=== PATIENT | male | born 2000 | race Caucasian/White ===

== ENCOUNTER 2021-12-24 13:09 | Emergency (ER) | payer OTHER ==
[~2021-12-24] VITALS: Ht 190 cm; Wt 75.0 kg
--- NOTE | 2021-12-24 13:48 | ED GU-Male ---
General Stated Complaint: UTI SYMPTOMS History of Present Illness Date Seen by Provider: Dec 24, 2021 Time Seen by Provider: 13:48 Initial Comments Patient reports that he noticed penile discharge for the past few weeks and dysuria. Reports that he thinks that he got an STD from his previous partner. States that his current partner is not having symptoms. No history of STD in the past. Timing/Duration: other (2 weeks) Severity/Quality: moderate, burning Location: urethral Radiation: none Activities at Onset: sexual activity Sexual [place] History: multiple partners Modifying Factors: Worsens With Urinating Associated Symptoms: No abdominal pain; dysuria; No fever/chills, No loss of bladder control, No nocturia, No urinary frequency Allergies and Home Medications Allergies Coded Allergies: No Known Drug Allergies (Unverified , 12/24/21) Patient Home Medication List Home Medication List Reviewed: Yes Review of Systems Review of Systems Constitutional: No chills, No fever Genitourinary: burning, discharge, dysuria; denies pain, denies urgency Musculoskeletal: No back pain, No joint pain Skin: No lesions, No lumps All Other Systemes Reviewed Negative Unless Noted: Yes Past Mrfiwuy-Epyhxm-Gyiscs Hx Family Medical History Reviewed Nursing Family Hx Physical Exam Vital Signs Vital Signs - First Documented 12/24/21 13:45 Temp 36.7 Pulse 84 Resp 18 B/P (MAP) 114/50 (71) Pulse Ox 99 Capillary Refill : Height, Weight, BMI Height: '" Weight: lbs. oz. kg; BMI Method: General Appearance: WD/WN, no apparent distress Gastrointestinal: normal bowel sounds, non tender, soft, no organomegaly, no pulsatile mass Neurologic/Psychiatric: alert, normal mood/affect, oriented x 3 Skin: normal color, warm/dry Progress/Results/Core Measures Suspected Sepsis SIRS Temperature: Pulse: Respiratory Rate: Blood Pressure / Mean: Results/Orders Lab Results Laboratory Tests Test 12/24/21 13:48 Range/Units My Orders Orders - APPLE CASTORENA APRN Chlamydia Trachomatis Urine (12/24/21 13:46) Neis Los Dna Urine Test (12/24/21 13:46) Ceftriaxone (Rocephin) (12/24/21 14:00) Doxycycline Hyclate Tablet (Vibramycin T (12/24/21 14:00) Lidocaine 1% Inj 20 Ml (Xylocaine 1% Inj (12/24/21 14:00) Vital Signs/I&O 12/24/21 13:45 Temp 36.7 Pulse 84 Resp 18 B/P (MAP) 114/50 (71) Pulse Ox 99 Capillary Refill : Progress Note : Progress Note Patient presented to the department with dysuria and discharge for the past few weeks. Obtained urine. Will treat for gonorrhea and chlamydia while here is here in the department. Importance of safe sex practices were reviewed with patient along with adherence to medication for treatment of chlamydia. Instructed that he will be notified of testing results. Abstain from sexual relations for at least a week and make sure that you partner is treated in addition. Reasons to return to the ER were discussed with patient. Departure Impression Primary Impression: Penile discharge Disposition: HOME, SELF-CARE Condition: Stable Departure-Patient Inst. Decision time for Depature: 14:09 Referrals: NO,LOCAL PHYSICIAN (PCP/Family) Primary Care Physician Patient Instructions: STD Prevention, Chlamydia and Gonorrhea Add. Discharge Instructions: 1. Home and rest. 2. Safe sex practices. 3. Push fluids. 4. Alternate Tylenol/Ibuprofen as needed for pain. 5. Follow up with PCP as needed. 6. Make sure that your partner is treated in addition if you are positive. 7. No sexual relations for at least a week. 8. Doxycycline as directed until finished. 9. Return here if worse or concerns. Scripts Doxycycline Hyclate (Doxycycline Hyclate) 100 Mg Tablet 100 MG PO BID for 7 Days, #14 TAB 0 Refills Prov: APPLE CASTORENA APRN 12/24/21 APPLE CASTORENA APRN Dec 24, 2021 13:48
[2021-12-24] MEDS ORDERED: cefTRIAXone 500 MG/5 ML ML IM ONE (14:00)
[2021-12-24] MEDS ORDERED: LIDOCAINE 1% INJ 20 ML VIAL INJ ONE (14:00)
[2021-12-24] MEDS ORDERED: DOXYCYCLINE 100 MG (VIBRAMYCIN) TABLET PO SCH (14:00)
[2021-12-24] MEDS ORDERED: DOXY100T2 PO (14:13)
[2021-12-24] MEDS ORDERED: LIDOCAINE 1% INJ 10 ML VIAL IJ STA (14:37)
[2021-12-24 14:45] VITALS: BP 114/50
== END 2021-12-24 14:45 | disposition home or self-care (01) ==
LOC: ER 13:12
DX: R36.9 Urethral discharge, unspecified (principal); Z28.310 Unvaccinated for COVID-19
CPT/HCPCS: 36415; 87491; 87591; 99284

== ENCOUNTER 2022-01-01 15:27 | Emergency (ER) | payer OTHER ==
[~2022-01-01] VITALS: Ht 190 cm; Wt 75.0 kg
[~2022-01-01 15:27] MED LIST: DOXY100T2 PO
--- NOTE | 2022-01-01 15:54 | ED EENT ---
History of Present Illness General Chief Complaint: Oral/Throat Problems Stated Complaint: SINUS PRESSURE/SORE THROAT Nursing Triage Note: PT REPORTS SORE THROAT, SINUS PRESSURE AND PAIN SINCE MONDAY. HE ALSO REPORTS HE HAD A 106 TEMPERTATURE ON MONDAY. TODAY HE C/O OF A HEADACHE. Source: patient History of Present Illness Date Seen by Provider: Jan 01, 2022 Time Seen by Provider: 15:33 Initial Comments 21-year-old male presenting with complaints of sore throat, sinus pressure, left ear pressure. He reports that he had a fever at home on . Since then he is felt sick with the sinus and throat pain. He has tried taking ibuprofen and Tylenol without improvement. He denies any ill contacts. He has not had a fever since . Timing/Duration: abrupt Severity: severe Location: throat, facial (Frontal sinus area) Prearrival Treatment: over the counter meds Modifying Factors: Worse With Lying Down (and standing up puts more pressure in his frontal sinus area) Associated Symptoms: No change in hearing, No cough, No drooling, No ear drainage; facial pain/swelling (frontal sinus), fever; No malaise; nasal congestion/drainage; No poor fluid intake, No poor solids intake; sore throat (l eft more than right) Allergies and Home Medications Allergies Coded Allergies: No Known Drug Allergies (Unverified , 12/24/21) Patient Home Medication List Home Medication List Reviewed: Yes Amoxicillin (Amoxicillin) 875 Mg Tablet, 875 MG PO BID Prescribed by: KLEBER TAM on 01/01/22 1622 Doxycycline Hyclate (Doxycycline Hyclate) 100 Mg Tablet, 100 MG PO BID Prescribed by: Esme Kramer on 12/24/21 1413 Review of Systems Review of Systems Constitutional: chills, fever () Eyes: No Symptoms Reported Ears: Pain (left ear) Nose: congestion Mouth: no symptoms reported Throat: see HPI, pain, swelling Respiratory: No cough Cardiovascular: No chest pain Gastrointestinal: No nausea, No vomiting Musculoskeletal: no symptoms reported Skin: No rash Neurological: Headache (frontal headache) Past Qhtiwmf-Joackp-Jjtfds Hx Patient Social History Tobacco Use?: No Use of E-Cig and/or Vaping dev: No Substance use?: No Alcohol Use?: No Pt feels they are or have been: No Past Medical History Surgery/Hospitalization HX: Gonorrhea 11/2021 Physical Exam Vital Signs Vital Signs - First Documented 01/01/22 15:30 Temp 37.4 Pulse 107 Resp 18 B/P (MAP) 111/65 (80) Pulse Ox 97 O2 Delivery Room Air Height, Weight, BMI Height: '" Weight: lbs. oz. kg; 20.00 BMI Method: General Appearance: WD/WN, no apparent distress Eyes: bilateral eye PERRL, bilateral eye EOMI Ears: right ear foreign body (cerumen impaction); left ear canal normal, left ear TM normal, left ear other (small effusion behind TM, TM is clear) Nose: sinus tenderness (frontal) Mouth/Throat: pharynx tenderness, tonsillar exudate, tonsillar swelling; No voice changes Neck: supple, lymphadenopathy (R), lymphadenopathy (L) (left greater than r ight) Cardiovascular: normal peripheral pulses, tachycardia Respiratory: chest non-tender, lungs clear, normal breath sounds, no respiratory distress, no accessory muscle use Gastrointestinal: normal bowel sounds, non tender, soft, no pulsatile mass Neurologic/Psychiatric: alert, oriented x 3 Skin: normal color, warm/dry Progress/Results/Core Measures Results/Orders Lab Results Laboratory Tests Test 01/01/22 15:48 Range/Units Group A Streptococcus Screen NEGATIVE NEGATIVE My Orders Orders - KLEBER TAM MD Rapid Strep A Screen (01/01/22 15:47) Dexamethasone Injection (Decadron Inje (01/01/22 15:47) Vital Signs/I&O 01/01/22 01/01/22 15:30 16:24 Temp 37.4 37.4 Pulse 107 107 Resp 18 18 B/P (MAP) 111/65 (80) 111/65 Pulse Ox 97 97 O2 Delivery Room Air Room Air Blood Pressure Mean: 80 Progress Progress Note #1: Progress Note Check rapid strep swab. Dexamethasone 10 mg IM for tonsil swelling and pain. Progress Note #2: Progress Note Rapid strep test was negative. However with his exudative pharyngitis will proceed with amoxicillin 875 mg twice daily. This would also help with his sinus and ear if he was having infection starting up. Encouraged to use [id number] nasal steroid to try and help relieve sinus pressure. Push fluids and rest. Given a note for work in case he was not able to return on Monday Departure Impression Primary Impression: Acute pharyngitis Qualified Codes: J02.9 - Acute pharyngitis, unspecified Additional Impression: Frontal sinus pain Disposition: HOME, SELF-CARE Condition: Stable Departure-Patient Inst. Decision time for Depature: 16:18 Referrals: NO,LOCAL PHYSICIAN (PCP) Primary Care Physician [facility] Patient Instructions: Sinus Headache (DC), Sore Throat, Adult ED Add. Discharge Instructions: Take full course of antibiotics to treat for infection in throat and sinuses. Change out your toothbrush after 24 hours of being on antibiotics. Warm Salt Water Gargles could help with throat pain. Consider using nasal steroid spray such as Flonase or Nasonex over the counter to help with sinus pressure and pain. Call [phone] to reach [facility] clinic to see about getting established for primary care and follow up. All discharge instructions reviewed with patient and/or family. Voiced understanding. Scripts Amoxicillin (Amoxicillin) 875 Mg Tablet 875 MG PO BID for Pharyngitis for 10 Days, #20 TAB 0 Refills Prov: KLEBER TAM MD 01/01/22 Work/School Note: Work Release Form Date Seen in the Emergency Department: Jan 01, 2022 Return to Work: Jan 04, 2022 Restrictions: Return-No Fever (24hrs) KLEBER TAM MD Jan 01, 2022 15:54
[2022-01-01] MEDS ORDERED: AMOX875T2 PO (16:22)
[2022-01-01 16:24] VITALS: BP 111/65
== END 2022-01-01 16:25 | disposition home or self-care (01) ==
LOC: EDUNIT# 15:27 → ER FS 15:29
DX: J02.9 Acute pharyngitis, unspecified (principal); J34.89 Other specified disorders of nose and nasal sinuses; Z28.310 Unvaccinated for COVID-19
CPT/HCPCS: 87430; 99284

== ENCOUNTER 2022-04-23 19:09 | Emergency (ER) | payer OTHER ==
[~2022-04-23] VITALS: Ht 182.8 cm; Wt 84.5 kg
[~2022-04-23 19:09] MED LIST changes: +AMOX875T2 PO
--- NOTE | 2022-04-23 19:24 | ED General ---
General Chief Complaint: Chest Wall Stated Complaint: CHEST TIGHTNESS History of Present Illness Date Seen by Provider: Apr 23, 2022 Time Seen by Provider: 19:18 Initial Comments 22-year-old male with no PMH is here with complaints of intermittent left side of chest wall, tightness which has been occurring intermittently over the past few months, and lasts for about a minute or so. Patient states that he notices the pain more when he lies on that side. Patient does not have any pain today at all. Patient stated that the last time he had this pain was 3 days ago. Patient is came to the ER to get checked out. Patient works in construction and lifts heavy objects often. Denies shortness of breath, fever, cough, URI symptoms, palpitations, abdominal pain, diarrhea. Allergies and Home Medications Allergies Coded Allergies: No Known Drug Allergies (Unverified , 12/24/21) Patient Home Medication List Home Medication List Reviewed: Yes Amoxicillin (Amoxicillin) 875 Mg Tablet, 875 MG PO BID Prescribed by: KLEBER TAM on 01/01/22 1622 Doxycycline Hyclate (Doxycycline Hyclate) 100 Mg Tablet, 100 MG PO BID Prescribed by: Esme Kramer on 12/24/21 1413 Review of Systems Review of Systems Constitutional: no symptoms reported EENTM: no symptoms reported Respiratory: no symptoms reported Cardiovascular: no symptoms reported Gastrointestinal: no symptoms reported Genitourinary: no symptoms reported Musculoskeletal: muscle pain Skin: no symptoms reported Psychiatric/Neurological: No Symptoms Reported Hematologic/Lymphatic: No Symptoms Reported Immunological/Allergic: no symptoms reported Past Ictbfjc-Rytqcn-Odgmnx Hx Patient Social History Tobacco Use?: No Substance use?: No Alcohol Use?: No Pt feels they are or have been: No Past Medical History Surgery/Hospitalization HX: Gonorrhea 11/2021 Physical Exam Vital Signs Vital Signs - First Documented 04/23/22 19:13 Temp 37.1 Pulse 88 Resp 16 B/P (MAP) 131/66 (87) Pulse Ox 99 O2 Delivery Room Air Capillary Refill : Less Than 3 Seconds Height, Weight, BMI Height: '" Weight: lbs. oz. kg; 20.00 BMI Method: General Appearance: No Apparent Distress, WD/WN HEENT: PERRL/EOMI Respiratory: Chest Non Tender (Chest wall is not tender to palpation.), Lungs Clear, Normal Breath Sounds Cardiovascular: Regular Rate, Rhythm, No Edema, No Murmur, Normal Peripheral Pulses Gastrointestinal: Non Tender, Soft Back: Normal Inspection, No Vertebral Tenderness Extremity: Normal Range of Motion Neurologic/Psychiatric: Alert, Oriented x3 Skin: Normal Color Lymphatic: No Adenopathy Comments No CVA tenderness, chest wall is not tender to touch. Patient is currently not feeling any pain. Progress/Results/Core Measures Suspected Sepsis SIRS Temperature: Pulse: Respiratory Rate: Blood Pressure / Mean: Results/Orders My Orders Orders - TEX NAILS MD Ekg Tracing (04/23/22 19:25) Chest 1 View Ap/Pa Only (04/23/22 19:25) Vital Signs/I&O 04/23/22 19:13 Temp 37.1 Pulse 88 Resp 16 B/P (MAP) 131/66 (87) Pulse Ox 99 O2 Delivery Room Air Capillary Refill : Less Than 3 Seconds Progress Note : Progress Note 1. CHEST WALL PAIN ( 3 days ago): MUSCLE STRAIN - CXR: no acute finding: faxed report - EKG is nonischemic -Patient is not having any chest pain today at all, and the last episode was 3 days ago. -Patient's vitals in the ER have been completely stable with no issues. -Advised patient to follow-up with PCP in the next 3 to 7 days and to have a full work-up done in the clinic. -The patient was seen in the ED, and treated appropriately to presentation at a specific point in time. Patient is informed that there is a possibility that disease and illness can evolve and change in acuity rapidly or slowly after patient is discharged from the ER. Precautionary advice given to the patient for immediate return to ER if symptoms worsen or do not resolve, and to seek emergency care sooner rather than later. Pt also advised on the importance of PCP follow up and compliance with management and follow up plan with PCP and/or specialist, as this is part of the management plan. Pt verbally expressed understanding. Departure Impression Primary Impression: Muscle strain of chest wall Qualified Codes: S29.011A - Strain of muscle and tendon of front wall of thorax, initial encounter Disposition: HOME, SELF-CARE Condition: Stable Departure-Patient Inst. Referrals: NO,LOCAL PHYSICIAN (PCP/Family) Primary Care Physician Patient Instructions: Muscle Strain ED Add. Discharge Instructions: -Advised patient to follow-up with PCP in the next 3 to 7 days and to have a full work-up done in the clinic. -. Patient is informed that there is a possibility that disease and illness can evolve and change in acuity rapidly or slowly after patient is discharged from the ER. Precautionary advice given to the patient for immediate return to ER if symptoms worsen or do not resolve, and to seek emergency care sooner rather than later. Pt also advised on the importance of PCP follow up and compliance with management and follow up plan with PCP and/or specialist, as this is part of the management plan. Pt verbally expressed understanding. All discharge instructions reviewed with patient and/or family. Voiced understanding. TEX NAILS MD Apr 23, 2022 19:24
[2022-04-23 21:10] VITALS: BP 118/60
--- NOTE | 2022-04-23 21:18 | Diagnostic Imaging Report ---
INDICATION: chest wall pain. TECHNIQUE: Single view chest 7:41 PM. CORRELATION STUDY: None FINDINGS: The heart size, mediastinal configuration and pulmonary vascularity are within normal limits. The lungs are clear with no consolidating infiltrate. There is no significant effusion or pneumothorax. IMPRESSION: 1. Negative appearing single view chest. Dictated by: Dictated on workstation # [id number]
== END 2022-04-23 21:11 | disposition home or self-care (01) ==
LOC: EDUNIT# 19:09 → ER FS 19:14
DX: S29.011A Strain of muscle and tendon of front wall of thorax, initial encounter (principal); Z28.310 Unvaccinated for COVID-19; X50.0XXA Overexertion from strenuous movement or load, initial encounter; Y92.59 Other trade areas as the place of occurrence of the external cause; Y99.0 Civilian activity done for income or pay
CPT/HCPCS: 71045; 93005

== ENCOUNTER 2022-07-29 08:51 | Emergency (ER) | payer OTHER ==
[~2022-07-29] VITALS: Ht 190.5 cm; Wt 89.9 kg
[2022-07-29 08:55] VITALS: BP 125/73
[2022-07-29 09:10] LABS: BILIRUBIN,URINE NEGATIVE (NEGATIVE); CLARITY,URINE CLEAR; COLOR,URINE YELLOW; GLUCOSE, URINE (UA) NEGATIVE (NEGATIVE); KETONES,URINE NEGATIVE (NEGATIVE); LEUKOCYTE ESTERASE ,URINE NEGATIVE (NEGATIVE); NITRITE,URINE NEGATIVE (NEGATIVE); PH,URINE 7.5 (5-9); PROTEIN,URINE NEGATIVE (NEGATIVE)
[2022-07-29 09:15] LABS: BACTERIA,URINE NEGATIVE /HPF; SQUAMOUS EPITHELIAL CELL,UR RARE /HPF; WBC,URINE RARE /HPF
[2022-07-29] MEDS ORDERED: ACETAMINOPHEN 500 MG TAB (TYLENOL) PO ONE (09:15)
[2022-07-29] MEDS ORDERED: KETOROLAC 15 MG/ML VIAL IM ONE (09:15)
--- NOTE | 2022-07-29 09:15 | ED Back Pain ---
General Chief Complaint: Back Problems Stated Complaint: BACK PAIN Nursing Triage Note: Patient c/o Left lower back / hip pain that became worse yesterday. Patient states this pain has been going on for awhile. Patient denies any recent falls or injuries. Patient denies any Hx. of kidney stones or blood in his urine. Patient denies any numbness or tingling down LLE, loss of bowel or bladder control, or numbness to saddle area. Pateitn states he has been taking IBU and using icy hot with no change in his symptoms. 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 Source of Information: Patient Exam Limitations: No Limitations History of Present Illness Date Seen by Provider: July 29, 2022 Time Seen by Provider: 08:55 Initial Comments 22-year-old male with no pertinent past medical history coming in due to left lower back pain. The pain started about a week ago, just woke up with sharp pain in that area. 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 There is no significant incident that he injured his back that he can recall. He denies hitting it on anything or any type of trauma. The pain at this point is constant. He has taken ibuprofen which has helped, last dose was last night. He is supposed to work tonight, and feels like he is unable to due to the pain. He has never had this type of pain before. Denies any numbness, weakness, bowel or bladder issues, hematuria, dysuria, history of kidney stones, or any other concerns. Allergies and Home Medications Allergies Coded Allergies: No Known Drug Allergies (Unverified , 12/24/21) Patient Home Medication List Home Medication List Reviewed: Yes Amoxicillin (Amoxicillin) 875 Mg Tablet, 875 MG PO BID Prescribed by: KLEBER TAM on 01/01/22 1622 Cyclobenzaprine HCl (Cyclobenzaprine HCl) 10 Mg Tablet, 10 MG PO Q8H PRN for SPASMS Prescribed by: JOEY HARRINGTON on 07/29/22 0923 Doxycycline Hyclate (Doxycycline Hyclate) 100 Mg Tablet, 100 MG PO BID Prescribed by: Esme Kramer on 12/24/21 1413 Ketorolac Tromethamine (Ketorolac Tromethamine) 10 Mg Tablet, 10 MG PO Q8H Prescribed by: JEOY HARRINGTON on 07/29/22922 Lidocaine (Lidocaine 5% Patch) 5 % Adh..patch, 1 EACH TP Q12H PRN for Ne uropathic pain Prescribed by: JOEY HARRINGTON on 07/29/22922 Review of Systems Constitutional: No fever EENTM: no symptoms reported Respiratory: no symptoms reported Cardiovascular: no symptoms reported Gastrointestinal: no symptoms reported Genitourinary: no symptoms reported Musculoskeletal: see HPI Skin: no symptoms reported Psychiatric/Neurological: No Symptoms Reported All Other Systems Reviewed Negative Unless Noted: Yes Past Bdvcbfi-Ktxjuw-Auyrkz Hx Patient Social History Tobacco Use?: No Use of E-Cig and/or Vaping dev: No Substance use?: No Alcohol Use?: No Pt feels they are or have been: No Immunizations Up To Date Influenza Vaccine Up-to-Date: No; Not Current Past Medical History Surgery/Hospitalization HX: Gonorrhea 11/2021 Physical Exam Vital Signs Vital Signs - First Documented 07/29/22 08:55 Temp 36.3 Pulse 94 Resp 12 B/P (MAP) 125/73 (90) Pulse Ox 98 O2 Delivery Room Air Capillary Refill : Height, Weight, BMI Height: '" Weight: lbs. oz. kg; 24.00 BMI Method: General Appearance: No Apparent Distress, WD/WN HEENT: PERRL/EOMI, Normal ENT Inspection, Pharynx Normal Neck: Full Range of Motion, Normal Inspection, Non Tender, Supple Cardiovascular: Regular Rate, Rhythm, No Edema, Normal Peripheral Pulses Respiratory: Chest Non Tender, Lungs Clear, Normal Breath Sounds, No Accessory Muscle Use, No Respiratory Distress Gastrointestinal: Normal Bowel Sounds, Non Tender, Soft; No Guarding Back: Normal Inspection, No CVA Tenderness, No Vertebral Tenderness, Other (Left lower paravertebral tenderness but no bony tenderness, negative straight l eg test, normal distal sensation and strength, 2+ patellar reflexes) Extremity: Normal Capillary Refill, Normal Inspection, Normal Range of Motion, Non Tender, No Calf Tenderness, No Pedal Edema Neurologic/Psychiatric: Alert, No Motor/Sensory Deficits, Normal Mood/Affect, Other (Normal gait) Skin: Normal Color, Warm/Dry Progress/Results/Core Measures Results/Orders Lab Results Laboratory Tests Test 07/29/22 08:58 Range/Units Urine Color YELLOW Urine Clarity CLEAR Urine pH 7.5 5-9 Urine Specific [place] 1.020 1.016-1.022 Urine Protein NEGATIVE NEGATIVE Urine Glucose (UA) NEGATIVE NEGATIVE Urine Ketones NEGATIVE NEGATIVE Urine Nitrite NEGATIVE NEGATIVE Urine Bilirubin NEGATIVE NEGATIVE Urine Urobilinogen 4.0 < = 1.0 MG/DL Urine Leukocyte Esterase NEGATIVE NEGATIVE Urine RBC (Auto) NEGATIVE NEGATIVE Urine RBC NONE /HPF Urine WBC RARE /HPF Urine Squamous Epithelial Cells RARE /HPF Urine Crystals NONE /LPF Urine Bacteria NEGATIVE /HPF Urine Casts NONE /LPF Urine Mucus NEGATIVE /LPF Urine Culture Indicated NO My Orders Orders - JOEY HARRINGTON MD Ua Culture If Indicated (07/29/22 09:05) Ketorolac Injection (Toradol Injection) (07/29/22 09:15) Acetaminophen Tablet (Tylenol Tablet) (07/29/22 09:15) Medications Given in ED Current Medications Medications Dose Ordered Sig/Willy Route Start Time Stop Time Status Last Admin Dose Admin Acetaminophen 1,000 mg ONCE ONCE PO 07/29/22 09:15 07/29/22 09:16 DC 07/29/22 09:21 1,000 MG Ketorolac Tromethamine 15 mg ONCE ONCE IM 07/29/22 09:15 07/29/22 09:16 DC 07/29/22 09:22 15 MG Vital Signs/I&O 07/29/22 08:55 Temp 36.3 Pulse 94 Resp 12 B/P (MAP) 125/73 (90) Pulse Ox 98 O2 Delivery Room Air Blood Pressure Mean: 90 Progress Progress Note : Progress Note 22-year-old male with above history coming in due to left lower back pain. ABCs were intact and vitals are stable on presentation. Physical exam reassuring and points to a musculoskeletal cause. He has no point tenderness over any bone, and office pain is exacerbated with any type of twisting or bending in his left lower back which fits musculoskeletal. He does not have any hematuria or other risk factors for a kidney stone. Urinalysis was sent and was negative for blood or any other abnormality making kidney stone even less likely. Ibuprofen has been helping, given IM Toradol here as well as oral Tylenol. We will send a prescription for anti-inflammatory as well as muscle relaxer to take as needed. He otherwise has no red flags including no weight loss, trauma, weakness or numbness, bowel or bladder issues, IV drug use, diabetes history, fever, or any other concerns. Considered imaging, but in the absence of trauma would likely not be helpful I believe he is otherwise stable for discharge with outpatient follow-up. He was sent home with strict return precautions. Departure Impression Primary Impression: Low back pain Qualified Codes: M54.50 - Low back pain, unspecified Disposition: 01 HOME, SELF-CARE Condition: Stable Departure-Patient Inst. Decision time for Depature: 09:30 Referrals: YOVANA HAINES MD,LOCAL PHYSICIAN (PCP) Primary Care Physician Patient Instructions: Low Back Pain ED Add. Discharge Instructions: This seems to be caused likely by a muscle from twisting or bending wrong at work. Typically low back pain gets better on its own after a couple of weeks. Do some gentle stretching and movements at home even though it hurts, to help work that out. You will be on ketorolac for the next few days, do not mix it with ibuprofen or naproxen. You can take Tylenol on top of it 1000 mg every 6-8 hours if you have pain continued. You can take the muscle relaxer as well, but do not operate any heavy machinery or drive as this can make you sleepy. You can follow-up with a physical therapist if you still have pain within a week and they can evaluate you in 2 different treatments as well as exercises to help with the pain. Please also follow-up with Dr. Haines, her numbers in this paperwork as it is important to have a primary care provider that knows you well. If you have any weakness we cannot move the leg, complete numbness in the leg, issues where you cannot go to the bathroom or you are going to the bathroom on yourself without knowing it, then we would want you to be seen by a doctor immediately. Scripts Lidocaine (Lidocaine 5% Patch) 5 % Adh..patch 1 EACH TP Q12H PRN for Neuropathic pain MDD 2 for 7 Days, #14 PATCH 2 patches max for 12 hours, then 12 hours patch-free period. Prov: JOEY HARRINGTON MD 07/29/22 Cyclobenzaprine HCl (Cyclobenzaprine HCl) 10 Mg Tablet 10 MG PO Q8H PRN for SPASMS for 5 Days, #15 TAB Prov: JOEY HARRINGTON MD 07/29/22 Ketorolac Tromethamine (Ketorolac Tromethamine) 10 Mg Tablet 10 MG PO Q8H for 4 Days, #12 TAB Prov: JOEY HARRINGTON MD 07/29/22 Work/School Note: Work Release Form Date Seen in the Emergency Department: July 29, 2022 Return to Work: July 31, 2022 Restrictions: No Restrictions JOEY HARRINGTON MD July 29, 2022 09:15
[2022-07-29] MEDS ORDERED: KETO10TA PO (09:23)
[2022-07-29] MEDS ORDERED: CYCL10TA25 PO (09:23)
[2022-07-29] MEDS ORDERED: LIDO700A45 TP (09:23)
== END 2022-07-29 09:27 | disposition home or self-care (01) ==
LOC: EDUNIT# 08:51 → ER FS 08:53
DX: M54.50 Low back pain, unspecified (principal); Z28.310 Unvaccinated for COVID-19
CPT/HCPCS: 81000; 99284

== ENCOUNTER 2022-08-19 11:20 | Emergency (ER) | payer OTHER ==
[~2022-08-19] VITALS: Ht 190.5 cm; Wt 90.6 kg
[~2022-08-19 11:20] MED LIST changes: +CYCL10TA25 PO; +KETO10TA PO; +LIDO700A45 TP
[2022-08-19 11:27] VITALS: BP 126/73
[2022-08-19] MEDS ORDERED: ONDA4TAB11 SL (11:36)
--- NOTE | 2022-08-19 11:36 | ED Headache ---
General Chief Complaint: Head/Cervical Problems Stated Complaint: HEADACHE; VOMITING Source: patient Exam Limitations: no limitations History of Present Illness Date Seen by Provider: August 19, 2022 Time Seen by Provider: 11:22 Initial Comments 22-year-old male with no pertinent past medical history coming in due to headache, nausea, and vomiting that is nonbloody nonbilious. Started a few days ago, no fever, no neck stiffness, no weakness, numbness, chest pain, abdominal pain, diarrhea, dysuria, or any other concerns. Otherwise has been eating and drinking normally. Has not taken any medicines for any of this. Allergies and Home Medications Allergies Coded Allergies: No Known Drug Allergies (Unverified , 12/24/21) Patient Home Medication List Home Medication List Reviewed: Yes Amoxicillin (Amoxicillin) 875 Mg Tablet, 875 MG PO BID Prescribed by: KLEBER TAM on 01/01/22 1622 Cyclobenzaprine HCl (Cyclobenzaprine HCl) 10 Mg Tablet, 10 MG PO Q8H PRN for SPASMS Prescribed by: JOEY HARRINGTON on 07/29/22 09 Doxycycline Hyclate (Doxycycline Hyclate) 100 Mg Tablet, 100 MG PO BID Prescribed by: Esme Kramer on 12/24/21 1413 Ketorolac Tromethamine (Ketorolac Tromethamine) 10 Mg Tablet, 10 MG PO Q8H Prescribed by: JOEY HARRINGTON on 07/29/22922 Lidocaine (Lidocaine 5% Patch) 5 % Adh..patch, 1 EACH TP Q12H PRN for Neuropathic pain Prescribed by: JOEY HARRINGTON on 07/29/22922 Review of Systems Review of Systems Constitutional: No fever Eyes: No Symptoms Reported Ears, Nose, Mouth, Throat: no symptoms reported Respiratory: no symptoms reported Cardiovascular: no symptoms reported Gastrointestinal: see HPI Genitourinary: no symptoms reported Musculoskeletal: no symptoms reported Skin: no symptoms reported Psychiatric/Neurological: See HPI Past Ihdmmdx-Btrypf-Ecncid Hx Patient Social History Tobacco Use?: No Substance use?: No Alcohol Use?: No Pt feels they are or have been: No Past Medical History Surgery/Hospitalization HX: Gonorrhea 11/2021 Physical Exam Vital Signs Capillary Refill : Height, Weight, BMI Height: '" Weight: lbs. oz. kg; 24.00 BMI Method: General Appearance: WD/WN, no apparent distress HEENT: PERRL/EOMI, normal ENT inspection, TMs normal, pharynx normal, other (Negative jolt test) Neck: non-tender, full range of motion, supple, normal inspection, other (No meningismus) Cardiovascular: regular rate, rhythm, no edema, no murmur Respiratory: chest non-tender, lungs clear, normal breath sounds, no respiratory distress, no accessory muscle use Gastrointestinal: normal bowel sounds, non tender, soft; No distended, No guarding, No rebound Back: normal inspection, no CVA tenderness, no vertebral tenderness Extremities: normal range of motion, non-tender, normal inspection, no pedal edema, no calf tenderness, normal capillary refill Psychiatric: alert, oriented x 3 Crainal Nerves: normal hearing, normal speech Coordination/Gait: normal gait Motor/Sensory: no motor deficit, no sensory deficit Skin: normal color, warm/dry Progress/Results/Core Measures Results/Orders My Orders Orders - JOEY HARRINGTON MD Prochlorperazine Injection (Compazine In (08/19/22 11:45) Diphenhydramine Injection (Benadryl Inje (08/19/22 11:45) Ibuprofen Tablet (Motrin Tablet) (08/19/22 11:45) Progress Progress Note : Progress Note 22-year-old male with above history coming in due to headache, nausea, nonbloody nonbilious vomiting. ABCs were intact and vitals were stable on presentation. Physical exam reassuring including he has no meningismus, no fever, negative jolt test, and all of this makes meningitis very unlikely. Abdominal exam also reassuring as it is soft and nontender, and he is not complaining of any subjective pain. Overall well-appearing, tolerating p.o. I suspect this is a GI illness versus migraine with nausea. We will give him IM medicines here followed by prescription for nausea medicines. I will give him information on how to follow-up with the PCP. Departure Impression Primary Impression: Headache Qualified Codes: G44.209 - Tension-type headache, unspecified, not intractable Additional Impression: Vomiting in adult patient Disposition: 01 HOME, SELF-CARE Condition: Stable Departure-Patient Inst. Decision time for Depature: 11:45 [address]errals: [facility] [place] NO,LOCAL PHYSICIAN (PCP) Primary Care Physician Patient Instructions: Nausea and Vomiting, Adult ED Add. Discharge Instructions: I suspect you have a GI illness causing the symptoms, and if that is the case it would last anywhere between 3 to 7 days. Is also possible you have a migraine forming which also causes nausea and vomiting. Nausea medicines were sent to your pharmacy. If you have a headache later today, take 600 mg of ibuprofen and 1000 mg of Tylenol. You can take these every 6 hours. Please call the [facility] on this paperwork to schedule an appointment to get a primary care provider. Scripts Ondansetron (Ondansetron Odt) 4 Mg Tab.rapdis 4 MG SL Q6H PRN for NAUSEA/VOMITING for 5 Days, #20 TAB Prov: JOEY HARRINGTON MD 08/19/22 Work/School Note: Work Release Form Date Seen in the Emergency Department: August 19, 2022 Return to Work: August 21, 2022 Restrictions: Return-No Fever (24hrs), Return-No Vomiting(24hrs) JOEY HARRINGTON MD August 19, 2022 11:36
[2022-08-19] MEDS ORDERED: IBUPROFEN 600 MG (MOTRIN) TAB PO ONE (11:45)
[2022-08-19] MEDS ORDERED: diphenhydrAMINE 50 MG/ML INJ (BENADRYL) IM ONE (11:45)
[2022-08-19] MEDS ORDERED: PROCHLORPERAZINE 10 MG/2ML INJ (COMPAZINE) IM ONE (11:45)
== END 2022-08-19 11:44 | disposition home or self-care (01) ==
LOC: EDUNIT# 11:20 → ER FS 11:22
DX: R51.9 Headache, unspecified (principal); R11.2 Nausea with vomiting, unspecified; Z28.310 Unvaccinated for COVID-19
CPT/HCPCS: 99284

== ENCOUNTER 2022-10-26 12:45 | Emergency (ER) | payer OTHER ==
[~2022-10-26] VITALS: Ht 190 cm; Wt 95.0 kg
[~2022-10-26 12:45] MED LIST changes: +ONDA4TAB11 SL
--- NOTE | 2022-10-26 12:53 | ED Abdominal Pain ---
General Chief Complaint: Abdominal/GI Problems Stated Complaint: DIZZINESS; VOMITING; GEN CRAMPS History of Present Illness Date Seen by Provider: Oct 26, 2022 Time Seen by Provider: 12:53 Initial Comments 22-year-old male presents with wanting to be evaluated for dehydration. He reports that a couple days ago he had a couple episodes of vomiting but none recently. That he gets some occasional dizziness but no real dizziness right now. Occasional headache. He does report that he is working out in the heat a lot and is not sure if he is got heat illness. This time he has maybe a mild headache but no real symptoms noted. Reports that he go to work last night because he was not feeling good. Allergies and Home Medications Allergies Coded Allergies: No Known Drug Allergies (Unverified , 12/24/21) Patient Home Medication List Home Medication List Reviewed: Yes Amoxicillin (Amoxicillin) 875 Mg Tablet, 875 MG PO BID Prescribed by: KLEBER TAM on 01/01/22 1622 Cyclobenzaprine HCl (Cyclobenzaprine HCl) 10 Mg Tablet, 10 MG PO Q8H PRN for SPASMS Prescribed by: JOEY HARRINGTON on 07/29/22 0923 Doxycycline Hyclate (Doxycycline Hyclate) 100 Mg Tablet, 100 MG PO BID Prescribed by: Esme Kramer on 12/24/21 1413 Ketorolac Tromethamine (Ketorolac Tromethamine) 10 Mg Tablet, 10 MG PO Q8H Prescribed by: JOEY HARRINGTON on 07/29/22 0923 Lidocaine (Lidocaine 5% Patch) 5 % Adh..patch, 1 EACH TP Q12H PRN for Neuropathic pain Prescribed by: JOEY HARRINGTON on 07/29/22 0923 Ondansetron (Ondansetron Odt) 4 Mg Tab.rapdis, 4 MG SL Q6H PRN for NAUSEA/VOMITING Prescribed by: JOEY HARRINGTON on 08/19/22 1136 Review of Systems Review of Systems Constitutional: see HPI; No chills, No fever EENTM: No Symptoms Reported Respiratory: No Symptoms Reported Cardiovascular: No Symptoms Reported Gastrointestinal: See HPI Genitourinary: No Symptoms Reported Musculoskeletal: no symptoms reported Skin: no symptoms reported Psychiatric/Neurological: No Symptoms Reported Past [id number]-Jiepux Hx Past Medical History Surgery/Hospitalization HX: Gonorrhea 11/2021 Physical Exam Vital Signs Vital Signs - First Documented 10/26/22 12:55 Temp 36.4 Pulse 82 Resp 16 B/P (MAP) 127/74 (91) Pulse Ox 98 O2 Delivery Room Air Capillary Refill : Height/Weight/BMI Height: '" Weight: lbs. oz. kg; 24.00 BMI Method: General Appearance: WD/WN, no apparent distress Respiratory: lungs clear Cardiovascular: normal peripheral pulses, regular rate, rhythm Gastrointestinal: non tender, soft Extremities: normal range of motion, non-tender Neurologic/Psychiatric: alert, normal mood/affect, oriented x 3 Skin: normal color, warm/dry Progress/Results/Core Measures Results/Orders Vital Signs/I&O 10/26/22 12:55 Temp 36.4 Pulse 82 Resp 16 B/P (MAP) 127/74 (91) Pulse Ox 98 O2 Delivery Room Air Progress Progress Note : Progress Note Patient's physical exam shows no signs of illness or dehydration. Discussed with him that he may have had a viral syndrome or possible heat exhaustion. Patient was offered further evaluation with labs and IV fluids but declined at this time. I discussed with him that he can rehydrate if he can take an oral and that is the preferred method. I recommend that he use electrolyte containing drinks such as Gatorade, body armor etc. Patient was requesting a work note which I will provide. He is stable and discharged home. Departure Impression Primary Impression: Heat effects of Qualified Codes: T67.9XXA - Effect of heat and light, unspecified, initial encounter Disposition: 01 HOME, SELF-CARE Condition: Stable Departure-Patient Inst. Referrals: NO,LOCAL PHYSICIAN (PCP/Family) Primary Care Physician Patient Instructions: Heat Illness ED Add. Discharge Instructions: Drink plenty of fluids such as Gatorade, body armor or similar electrolyte containing fluids. Be sure to take plenty of breaks while working in the heat. Return to the ER with any concerns All discharge instructions reviewed with patient and/or family. Voiced understanding. Work/School Note: Work Release Form Date Seen in the Emergency Department: Oct 26, 2022 Return to Work: Oct 28, 2022 YAMILET MARTINEZ DO Oct 26, 2022 12:53
[2022-10-26 12:55] VITALS: BP 127/74
== END 2022-10-26 13:15 | disposition home or self-care (01) ==
LOC: EDUNIT# 12:45 → ER FS 12:47
DX: T67.9XXA Effect of heat and light, unspecified, initial encounter (principal); X30.XXXA Exposure to excessive natural heat, initial encounter
CPT/HCPCS: 99281